=== PATIENT | female | born 1960 | race Two or more races ===

== ENCOUNTER 2023-10-02 05:59 | Day surgery (SDC) | payer OTHER ==
[~2023-10-02 05:59] MED LIST: GABAP PO; GLUMETZA500 MG PO; LIPITOR40 M1 PO; SINGULAIR10 MG PO; ZESTRIL10 M1 PO
== END 2023-10-02 15:50 | disposition home or self-care (01) ==
LOC: CIR.AMB 05:59
PROVIDERS: ATTEND Colon & Rectal Surgery
DX: K60.1 Chronic anal fissure (principal); K62.89 Other specified diseases of anus and rectum; K62.5 Hemorrhage of anus and rectum; Z20.822 Contact with and (suspected) exposure to COVID-19; Z91.041 Radiographic dye allergy status; I10 Essential (primary) hypertension